=== PATIENT | male | born 1930 | race Caucasian/White ===

== ENCOUNTER → 2016-11-10 | Outpatient (CLI) | payer MEDICARE | LOC: GMAM 10:39 | PROVIDERS: ATTEND Family Medicine | DX: M10.9 Gout, unspecified (principal); Z12.5 Encounter for screening for malignant neoplasm of prostate | CPT/HCPCS: 84550; G0103 ==

== ENCOUNTER → 2016-11-11 | Outpatient (CLI) | payer MEDICARE | LOC: GMAM 12:49 | PROVIDERS: ATTEND Family Medicine | DX: N18.4 Chronic kidney disease, stage 4 (severe) (principal) ==

== ENCOUNTER → 2017-02-22 | Outpatient (CLI) | payer MEDICARE | END | disposition home or self-care (01) | LOC: GMAM 11:36 | PROVIDERS: ATTEND Family Medicine | DX: N18.4 Chronic kidney disease, stage 4 (severe) (principal) ==

== ENCOUNTER → 2017-05-11 | Outpatient (CLI) | payer MEDICARE | END | disposition home or self-care (01) | LOC: GMAM 14:48 | PROVIDERS: ATTEND Family Medicine | DX: M10.9 Gout, unspecified (principal) ==

== ENCOUNTER → 2017-05-30 | Outpatient (CLI) | payer MEDICARE ==
--- NOTE | 2017-05-31 10:02 | CT ---
EXAM DESCRIPTION: CT chest without contrast CLINICAL HISTORY: Abnormal chest radiograph. Lung mass. COMPARISON: None Available. TECHNIQUE: Noncontrast spiral CT with coronal and sagittal reformatted images. This exam was performed according to our departmental dose-optimization program, which includes automated exposure control, adjustment of the mA and/or kV according to patient size and/or use of iterative reconstruction technique. FINDINGS: Lobulated solid mass lesion right upper lobe of the lung with approximate measurements 2.6 x 4 x 2.7 cm. Irregular nodular periphery with linear extension to the pleural surface. Tiny irregular left upper lobe 3 mm nodule series 2 image 16. Well-circumscribed noncalcified solid nodule left lower lobe 11 mm series 2 image 39. Biapical pleural parenchymal scarring. No pulmonary edema or alveolar consolidation. Minimal linear scar subpleural right middle lobe and left lower lobe. Small amount of pleural fluid bilaterally. Scattered subcentimeter mediastinal lymph nodes. The largest mediastinal lymph node is pericarinal about 9 mm transverse. Cardiomegaly. Cardiac pacemaker. Coronary artery calcifications. Atherosclerotic aorta without aneurysm. Images through the upper abdomen show a hypodense 1.8 cm mass in the medial aspect anterior segment right lobe of the liver series 2 image 58. Hounsfield unit density about 10. This is probably a hepatic cyst. Visualized liver otherwise unremarkable. Partially visualized anterior mid left renal lesion at least 3 cm in size with Hounsfield unit density of 7 suggesting cyst. No mass lesion in the spleen or the visualized pancreas. Adrenal glands are normal. Mild degenerative changes are present in the spine. No lytic or blastic bony lesion IMPRESSION: Lobulated irregular right upper lobe mass lesion, up to 4 cm, strongly suggesting primary malignancy. No adenopathy by size criteria in the hilum or mediastinum There are 2 other pulmonary nodules, 3 mm left upper lobe and 11 mm left lower lobe which are indeterminate. These could be postinflammatory nodules. Metastatic disease not excluded Electronically signed by: Joe Oliveros MD 05/31/2017 10:00 AM CDT
== END ==
LOC: CT 10:14
PROVIDERS: ATTEND Family Medicine
DX: R91.8 Other nonspecific abnormal finding of lung field (principal)

== ENCOUNTER → 2017-12-09 | Outpatient (CLI) | payer MEDICARE | LOC: GMAM 12:24 | PROVIDERS: ATTEND Family Medicine | DX: M10.9 Gout, unspecified (principal); E55.9 Vitamin D deficiency, unspecified; Z12.5 Encounter for screening for malignant neoplasm of prostate | CPT/HCPCS: 82306; 84550; G0103 ==